=== PATIENT | male | born 1990 | race Hispanic/Latino ===

== ENCOUNTER 2019-07-29 15:08 | Emergency (ER) | payer OTHER ==
[2019-07-29 16:10] LABS: RAPID GROUP A STREP NEGATIVE (NEGATIVE)
[2019-07-29] MEDS ORDERED: IPRATROPIUM/ALBUTEROL SULFATE 3 ML SOLUTION IH ONE (16:36)
== END 2019-07-29 17:42 | disposition home or self-care (01) ==
LOC: EDH 15:08
DX: J06.9 Acute upper respiratory infection, unspecified (principal); Z72.0 Tobacco use
CPT/HCPCS: 71046; 87804; 87880; 94640